=== PATIENT | female | born 1950 | race Caucasian/White ===

== ENCOUNTER 2020-04-11 10:30 | Outpatient (CLI) | payer MEDICARE, OTHER, SELFPAY ==
--- NOTE | 2020-04-11 10:36 | MM_ITS ---
WS: [id number] BILATERAL SCREENING DIGITAL MAMMOGRAM WITH CAD HISTORY: SCREENING COMPARISON: 03/23/2019, 03/03/2018 and 02/11/2017 Bilateral CC and MLO views submitted. Computer aided detection analyzed. Breast composition: The breasts are heterogeneously dense, which may obscure small masses. No suspici ous masses, microcalcifications or architectural distortion. Rodlike benign calcifications. Asymmetry in the superior LEFT breast on the MLO projection is stable over multiple prior studies. MM/[place] [id number] IMPRESSION: BI-RADS: 2-Benign FOLLOW UP: 1 Year Follow-up
== END 2020-04-11 10:31 | disposition home or self-care (01) ==
LOC: RADSHAW 10:34
PROVIDERS: PCP Nurse Practitioner; Visit Provider Nurse Practitioner
DX: Z12.31 Encounter for screening mammogram for malignant neoplasm of breast (principal)
CPT/HCPCS: 77067

== ENCOUNTER 2020-08-17 09:24 | Outpatient (CLI) | payer MEDICARE, OTHER, SELFPAY ==
[2020-08-17 09:44] VITALS: BMI 25.3
--- NOTE | 2020-08-17 09:50 | ECG_ITS ---
[facility] Test Date: 2020-08-17 Pat Name: Nereida Breen Department: Room: Gender: Female [employer] Supervisor: : 1950 Requested By: Elidia Ortega Order Number: [id number] Jatinder MD: Kaylie Pro M.D. Interpretive Statements NAME OF STUDY: LEXISCAN SESTAMIBI STRESS TEST INDICATION: Atypical Chest Pain PROCEDURE: At the baseline, the blood pressure was 151/101 mmHg, oxygen saturation 98% with a heart rate of 70 bpm. The electrocardiogram showed normal sinus rhythm, normal axis with nonspecific ST-T wave changes. Poor anterior R wave progression. The Lexiscan was infused over a period of 20 seconds. A total of 0.4 milligrams of Lexiscan was infused. The stress phase was continued for a total of 5 minutes. Heart rate at the end of the stress phase was 90 bpm, oxygen saturation 98% with a blood pressure of 152/89 mmHg. The EKG at the peak infusion revealed sinus rhythm with no significant ST-T wave changes. Sestamibi was injected 20 seconds after the Lexiscan infusion. Blood pressure at the end of the recovery phase was 165/97 mmHg, oxygen saturation 98% with a heart rate of 87 beats per minute. CONCLUSION: 1. No significant EKG changes with the LexiScan infusion. 2. No LexiScan induced chest pain or cardiac arrhythmia. 3. Baseline hypertension with normal blood pressure and heart rate response. 4. Sestamibi/sestamibi perfusion scan pending; see separate report. Electronically Signed On 08-21-2020 13:57:04 [employer]ILD [employer]IVE SERVICES SOCIAL WORKER by Kaylie Pro M.D. [id number]
--- NOTE | 2020-08-17 09:51 | NMCV_ITS ---
NM linda perf SPECT r/s* [id number] Nereida Breen Age: 69 Gender: F : 1950 Exam Date: 08/17/2020 11:10 Ordering Phys: Elidia Jones APN Technologist: WILLIAN Reyes Exam Location: [facility] Indications: CHEST PAIN STRESS TEST Please see separate stress test report in [facility] for full findings IMAGE PROTOCOL Rest/Stress 1 Lexiscan Day Radiopharmaceutical Dose (mCi) Administration Site Administered by Rest: Tc-99m 10.6 IV WILLIAN Reyes Sestamibi Stress:Tc-99m 32.5 IV WILLIAN Simons Sestamibi Rest: 17-Aug-2020 60 Discovery 630 Stress: 17-Aug-2020 30 Discovery 630 0.4mg Lexiscan. Supine position only as patient was unable to lay prone. SPECT RESULTS Technical Quality: Excellent Raw Data Analysis: Normal Image Corrections: No attenuation or motion correction applied Summed Stress Score: 0 Summed Rest Score: 0 Summed Difference Score: 0 PERFUSION FINDINGS SPECT images demonstrate homogeneous tracer distribution throughout the myocardium. FUNCTIONAL RESULTS (calculated via Gated SPECT) Stress Image LV EF (%): 67 Stress EDV (mL):92 TID: 0.93 Stress ESV (mL):30 FUNCTIONAL FINDINGS: The left ventricle is normal in size. Transient Ischemia Dilatation of 0.93. There is normal left ventricular systolic function. The left ventricular ejection fraction is normal with a value of 67%. There is normal left ventricular wall thickening and no regional wall motion abnormality. Normal end-diastolic and end-systolic volumes. IMPRESSIONS 1. Myocardial perfusion imaging is normal. Attenuation artifact noted in apical lateral wall. 2. Overall left ventricular systolic function is normal without regional wall motion abnormalities. 3. The left ventricular ejection fraction is normal with a value of 67%. 4. Scan indicates low risk for cardiac events. Kaylie Pro MD (Electronically Signed) Final Date: 21 August 2020 14:02 S
--- NOTE | 2020-08-17 11:31 | SUR.PREOP ---
Patient reports no pain or discomfort prior to the start of the procedure.
[2020-08-17] MEDS: regadenoson 0.4 Mg/5 ml Syringe IVP (11:38)
[2020-08-17 12:01] VITALS: BP 165/97; PULSE 87
== END 2020-08-17 09:25 | disposition home or self-care (01) ==
LOC: CDL 09:25
PROVIDERS: PCP Nurse Practitioner; Visit Provider Nurse Practitioner
DX: R07.89 Other chest pain (principal)
CPT/HCPCS: 78452; 93017; A9500; J2785

== ENCOUNTER 2020-11-29 10:59 | Outpatient (CLI) | payer MEDICARE, OTHER, SELFPAY ==
--- NOTE | 2020-11-29 11:07 | XR_ITS ---
WS: [id number] KNEE RIGHT TECHNIQUE: 2 views of the right knee CLINICAL INFORMATION: BILATERAL PRIMARY OSTEOARTHRITIS OF KNEE COMPARISON: None. FINDINGS: Normal anatomic alignment. Mild tricompartmental arthritis. Slightly hypertrophic patella. Small supr apatellar effusion. Mild soft tissue edema. No acute fractures. XR/XR knee RT 1-2V [id number] IMPRESSION: Mild tricompartmental arthritis. Small suprapatellar effusion. Kellgren-Simon Classification: grade 3 (moderate): moderate multiple osteoph ytes, definite narrowing of joint space and some sclerosis and possible deformi ty of bone ends
--- NOTE | 2020-11-29 11:07 | XR_ITS ---
WS: [id number] KNEE LEFT TECHNIQUE: 2 views of the left knee CLINICAL INFORMATION: BILATERAL PRIMARY OSTEOARTHRITIS OF KNEE COMPARISON: None. FINDINGS: Normal anatomic alignment. Mild tricompartmental arthritis. Slightly hypertrophic patella. Soft tissu e edema. Small suprapatellar effusion. No acute fractures.. XR/XR knee LT 1-2V [id number] IMPRESSION: Mild tricompartmental arthritis. Small suprapatellar effusion. Kellgren-Simon Classification: grade 3 (moderate): moderate multiple osteoph ytes, definite narrowing of joint space and some sclerosis and possible deformi ty of bone ends
== END 2020-11-29 11:00 | disposition home or self-care (01) ==
PROVIDERS: PCP Nurse Practitioner; Visit Provider Nurse Practitioner
DX: M17.0 Bilateral primary osteoarthritis of knee (principal); M25.462 Effusion, left knee; M25.461 Effusion, right knee
CPT/HCPCS: 73560

== ENCOUNTER 2021-04-12 11:42 | Outpatient (CLI) | payer MEDICARE, OTHER, SELFPAY ==
--- NOTE | 2021-04-12 11:46 | MM_ITS ---
WS: [id number] BILATERAL DIGITAL SCREENING MAMMOGRAPHY WITH CAD CLINICAL INFORMATION: SCREENING HISTORY: Screening mammogram. No current complaints. COMPARISON: April 11, 2020 TECHNIQUE: Bilateral CC and MLO views. FINDINGS: Scattered fibroglandular densities bilaterally. Punctate and secretory calcifications are stable. No suspicious focal mass, asymmetry, calcifications, or architectural distortion. No evidence of maligna ncy. MM/[place] [id number] IMPRESSION: BI-RADS: 2-Benign FOLLOW UP: 1 Year Follow-up Recommend return to annual screening mammography.
== END 2021-04-12 11:43 | disposition home or self-care (01) ==
LOC: RADSHAW 11:45
PROVIDERS: PCP Nurse Practitioner; Visit Provider Nurse Practitioner
DX: Z12.31 Encounter for screening mammogram for malignant neoplasm of breast (principal)
CPT/HCPCS: 77067

== ENCOUNTER 2021-09-17 10:14 | Outpatient (CLI) | payer MEDICARE, OTHER, SELFPAY ==
--- NOTE | 2021-09-17 10:38 | XR_ITS ---
WS: [id number] Exam: XR foot RT min 3V* [id number] Date/Time of Exam: 09/17/2021 10:38 AM Reason For Exam: OTHER ACQUIRED OF RIGHT FOOT No acute fracture or dislocation. Degenerative changes in the IP joints, first MP joint and midfoot j oints. No soft tissue foreign bodies. Plantar heel spur. Several hammertoe deformities noted. XR/XR foot RT min 3V* [id number] IMPRESSION: 1. Degenerative changes. No fracture or dislocation.
--- NOTE | 2021-09-17 10:49 | XR_ITS ---
WS: [id number] Exam: XR foot LT min 3V* [id number] Date/Time of Exam: 09/17/2021 10:49 AM Reason For Exam: PAIN IN LEFT FOOT No acute fracture or dislocation. Degenerative changes in the IP joints. Normal soft tissues. Posteri or calcaneal spur. No soft tissue foreign bodies. XR/XR foot LT min 3V* [id number] IMPRESSION: 1. Degenerative changes in the IP joints. 2. No fracture or dislocation.
== END 2021-09-17 10:15 | disposition home or self-care (01) ==
LOC: RAD 10:17
PROVIDERS: PCP Nurse Practitioner; Visit Provider Nurse Practitioner
DX: M21.6X1 Other acquired deformities of right foot (principal); M79.672 Pain in left foot
CPT/HCPCS: 73630

== ENCOUNTER → 2021-10-22 10:53 | Outpatient (BNVA) | payer MEDICARE, OTHER, SELFPAY | PROVIDERS: PCP Nurse Practitioner; Referring Provider Nurse Practitioner; Visit Provider Podiatrist Foot & Ankle Surgery | DX: M79.671 Pain in right foot (principal); M19.071 Primary osteoarthritis, right ankle and foot | CPT/HCPCS: 99203; 99204 ==

== ENCOUNTER 2022-04-23 15:26 | Outpatient (CLI) | payer MEDICARE, OTHER, SELFPAY ==
--- NOTE | 2022-04-23 15:35 | MM_ITS ---
WS: [id number] BILATERAL 3D TOMOSYNTHESIS DIGITAL SCREENING MAMMOGRAPHY WITH CAD CLINICAL INFORMATION: SCREENING HISTORY: Screening mammogram. No current complaints. COMPARISON: 2020 TECHNIQUE: Bilateral CC and MLO views. FINDINGS: Scattered fibroglandular densities bilaterally. No suspicious mass, asymmetry, calcifications, or arc hitectural distortion. No evidence of malignancy. Punctate and lucent centered calcifications. Secret ory calcifications. MM/[place] [id number] IMPRESSION: BI-RADS: 2-Benign FOLLOW UP: 1 Year Follow-up Recommend return to annual screening mammography.
== END 2022-04-23 15:27 | disposition home or self-care (01) ==
LOC: RAD 15:28
PROVIDERS: PCP Nurse Practitioner Family; Visit Provider Nurse Practitioner Family
DX: Z12.31 Encounter for screening mammogram for malignant neoplasm of breast (principal)
CPT/HCPCS: 77063; 77067

== ENCOUNTER → 2023-02-26 09:53 | Outpatient (BNVA) | payer MEDICARE, OTHER, SELFPAY | PROVIDERS: PCP Nurse Practitioner Family; Referring Provider Nurse Practitioner Family; Visit Provider Nurse Practitioner Family | DX: D48.5 Neoplasm of uncertain behavior of skin (principal); L81.4 Other melanin hyperpigmentation; D22.5 Melanocytic nevi of trunk; L57.8 Other skin changes due to chronic exposure to nonionizing radiation; L82.1 Other seborrheic keratosis; Z91.014 Allergy to mammalian meats; L85.3 Xerosis cutis | CPT/HCPCS: 11102; 99203 ==

== ENCOUNTER → 2023-03-13 08:13 | Outpatient (BNVA) | payer MEDICARE, OTHER, SELFPAY | PROVIDERS: PCP Nurse Practitioner Family; Visit Provider Dermatology | DX: D03.61 Melanoma in situ of right upper limb, including shoulder (principal) | CPT/HCPCS: 11603; 12032 ==

== ENCOUNTER 2023-05-07 08:42 | Outpatient (CLI) | payer MEDICARE, OTHER, SELFPAY ==
--- NOTE | 2023-05-07 08:44 | MM_ITS ---
WS: [id number] BILATERAL SCREENING DIGITAL TOMOSYNTHESIS MAMMOGRAM WITH CAD HISTORY: SCREENING COMPARISON: 04/23/2022 and 04/12/2021 Bilateral CC and MLO views with tomosynthesis and synthetic mammography submitted. Computer aided det ection analyzed. Breast composition: There are scattered areas of fibroglandular density. No suspicious masses, microc alcifications or architectural distortion. Numerous benign calcifications within each breast. IMPRESSION: MM/[place] [id number] BI-RADS: 2-Benign FOLLOW UP: 1 Year Follow-up
== END 2023-05-07 08:43 | disposition home or self-care (01) ==
LOC: RAD 08:42
PROVIDERS: PCP Nurse Practitioner Family; Visit Provider Nurse Practitioner Family
DX: Z12.31 Encounter for screening mammogram for malignant neoplasm of breast (principal)
CPT/HCPCS: 77063; 77067

== ENCOUNTER → 2023-07-22 14:43 | Outpatient (BNVA) | payer MEDICARE, OTHER, SELFPAY | PROVIDERS: PCP Nurse Practitioner Family; Visit Provider Dermatology | DX: L82.0 Inflamed seborrheic keratosis (principal); L71.8 Other rosacea; L82.1 Other seborrheic keratosis; L81.4 Other melanin hyperpigmentation; Z86.006 Personal history of melanoma in-situ | CPT/HCPCS: 17110; 99214 ==

== ENCOUNTER → 2024-03-12 08:15 | Outpatient (BNVA) | payer MEDICARE, OTHER, SELFPAY | PROVIDERS: PCP Nurse Practitioner Family; Visit Provider Nurse Practitioner Family | DX: L71.8 Other rosacea (principal); L82.1 Other seborrheic keratosis; L81.4 Other melanin hyperpigmentation; L57.8 Other skin changes due to chronic exposure to nonionizing radiation; D22.5 Melanocytic nevi of trunk; L82.0 Inflamed seborrheic keratosis; Z86.006 Personal history of melanoma in-situ | CPT/HCPCS: 17110; 99214 ==

== ENCOUNTER 2024-05-17 13:51 | Outpatient (CLI) | payer MEDICARE, OTHER, SELFPAY ==
--- NOTE | 2024-05-17 13:53 | MM_ITS ---
WS: [id number] Bilateral screening 3D tomosynthesis digital mammogram, 05/17/2024 1:53 PM Clinical Data: SCREENING Comparison: 05/07/2023, 04/23/2022, 04/12/2021, 04/19/2020, 03/23/2019, 03/03/2018, 02/24/2018, 02/11/2017, 01/08/2016, 12/05/2014, 05/26/2014, 03/10/2013, 04/07/2006. Findings: No spiculated masses or clustered calcifications are seen. There are no secondary signs of carcinoma . Numerous ductal calcifications are present in both breasts. MM/MM scr BI tomosynthesis [id number] Impression: Negative bilateral mammogram unchanged. Recommend annual screening mammograms. BIRADS: 1 - Negative. FOLLOW UP: 1 Year Follow-up DENSITY: There are scattered areas of fibroglandular density. The CAD electric organ checker was used
== END 2024-05-17 13:52 | disposition home or self-care (01) ==
LOC: RAD 13:52
PROVIDERS: PCP Nurse Practitioner Family; Visit Provider Nurse Practitioner Family
DX: Z12.31 Encounter for screening mammogram for malignant neoplasm of breast (principal); R92.1 Mammographic calcification found on diagnostic imaging of breast
CPT/HCPCS: 77063; 77067

== ENCOUNTER → 2024-09-09 09:11 | Outpatient (BNVA) | payer MEDICARE, OTHER, SELFPAY | PROVIDERS: PCP Nurse Practitioner Family; Visit Provider Nurse Practitioner Family | DX: L71.8 Other rosacea (principal); D22.5 Melanocytic nevi of trunk; L81.4 Other melanin hyperpigmentation; L57.8 Other skin changes due to chronic exposure to nonionizing radiation; Z08 Encounter for follow-up examination after completed treatment for malignant neoplasm; Z86.006 Personal history of melanoma in-situ; L57.0 Actinic keratosis | CPT/HCPCS: 17000; 99214 ==

== ENCOUNTER → 2024-12-03 09:28 | Outpatient (BNVA) | payer MEDICARE, OTHER, SELFPAY | PROVIDERS: PCP Nurse Practitioner Family; Visit Provider Student in an Organized Health Care Education/Training Program | DX: K57.92 Diverticulitis of intestine, part unspecified, without perforation or abscess without bleeding (principal) | CPT/HCPCS: 99204 ==

== ENCOUNTER 2024-12-28 07:34 | Day surgery (SDC) | payer MEDICARE, OTHER, SELFPAY ==
[2024-12-28 08:06] VITALS: BP 178/82; PULSE 57; RESP 16; TEMP 36.7; O2SAT 97; BMI 22.8
--- NOTE | 2024-12-28 09:02 | ANES.PREANE2 ---
Pre-Anesthetic Assessment Height/Weight: Height 1.65 m Weight 62.142 kg Temp Pulse Resp BP Pulse Ox O2 Del Method 98.1 F 57 L 16 178/82 97 Room Air 12/28/24 08:06 12/28/24 08:06 12/28/24 08:06 12/28/24 08:06 12/28/24 08:06 12/28/24 08:06 Preop Diagnosis: Diverticulitis Operation Date: 12/28/24 09:00 Proposed Procedures p Colonoscopy 61476, G0105, K57.92(Not Applicable) - Jerry Flanagan MD Was Beta Valdemar taken within 24 hours: Yes Was Clonidine taken within 24 hours: N/A Last intake: Intake Last Liquid Date 12/27/24 Last Liquid Time 20:00 Last Solid Date 12/26/24 Last Solid Time 18:00 Social No alcohol and No tobacco Exam alert, oriented x 3, clear to auscultation bilaterally and regular rate & rhythm Airway Submandibular: within normal limits Cervical ROM: within normal limits Mallampati: Class II Dentition: full History/ROS No significant history except as noted and No significant complaints Pulmonary None reported CV/HEM Hypertension None reported Hepatic None reported GI None reported Metabolic Thyroid Disease [facility]/sk None reported Neuropsych None reported Anesthetic Plan ASA status: 2 Anesthesia: Anesthesia Evaluation and MAC Risk of > 500 ml blood loss (7ml/kg in children): No Medications/Allergies Home Medications ?Medication ?Instructions ?Recorded ?Confirmed ?Last Taken ?Type alprazolam 0.5 mg tablet 0.5 mg PO DAILY 10/22/21 12/28/24 12/22/24 04:00 History fluticasone propionate 50 50 mcg intranasal DAILY 10/22/21 12/28/24 12/22/24 04:00 History mcg/actuation nasal spray,suspension levothyroxine 75 mcg tablet 100 mcg PO DAILY 10/22/21 12/28/24 12/28/24 History metoprolol succinate 50 mg 50 tab PO DAILY 10/22/21 12/28/24 12/28/24 History tablet,extended release 24 hr ondansetron 8 mg disintegrating 8 mg PO Q8H PRN nausea and 12/21/24 12/28/24 Unknown Rx tablet vomiting #3 tabs Allergies Allergy/AdvReac Type Severity Reaction Status Date / Time Alpha-Gal Allergy ADR-Itching Verified 12/28/24 08:04 (Rdydubrtu-Ufpqe-3,3-Gala Iodine and Iodide Containing Allergy Unknown Verified 12/28/24 08:04 Produc Penicillins Allergy Unknown Verified 12/28/24 08:04 Sulfa (Sulfonamide Allergy Unknown Verified 12/28/24 08:04 Antibiotics) Current Medications Generic Name Dose Route Start Last Admin Trade Name Freq PRN Reason Stop Dose Admin Sodium Chloride 1,000 mls @ 15 mls/hr 12/28/24 07:52 12/28/24 08:14 Sodium Chloride 0.9% IV 12/29/24 07:51 15 mls/hr .Q24H PRN Administration COLONOSCOPY FLUIDS PFSH Anesthesia Family History Other CAD (coronary artery disease) Social History Smoking and tobacco/nicotine status: never used tobacco/nicotine Data Anesthesia Cardiac Studies: Sestamibi Stress Test (Cardiology) 08/17/20 Holter Monitor 08/04/20
--- NOTE | 2024-12-28 09:22 | W.PM.OPSUD ---
Surgery/Procedure H&P Update DATE OF PROCEDURE: December 28, 2024 DATE H&P PERFORMED: 12/03/24 H&P UPDATE INFORMATION: I have reviewed H&P completed within last 30 days, I have examined patient prior to procedure and No changes to prior documentation PREOP DIAGNOSIS: Diverticulitis PLANNED PROCEDURE: Operation Date: 12/28/24 09:00 Proposed Procedures p Colonoscopy 35339, G0105, K57.92(Not Applicable) - Jerry Flanagan MD
--- NOTE | 2024-12-28 09:52 | PC.NURSE ---
Cecum time 0990
[2024-12-28 09:59] VITALS: BP 139/67; PULSE 53; RESP 20; TEMP 36.3; O2SAT 98
[2024-12-28 10:18] VITALS: BP 154/76; PULSE 56; RESP 18; O2SAT 99
--- NOTE | 2024-12-28 10:40 | ANE.PACU2 ---
Inpatient post-anesthesia follow up: Airway intact: Yes Vital signs: Temperature 97.4 F Pulse Rate 56 Respiratory Rate 18 Blood Pressure 154/76 Pulse Oximetry 99 Oxygen Delivery Me thod Room Air Oxygen Flow Rate Fraction of Inspir ed Oxygen Hydration adequate: Yes Nausea and vomiting: No Pain level: 1 Mental status: Baseline
== END 2024-12-28 10:40 | disposition home or self-care (01) ==
PROVIDERS: PCP Nurse Practitioner Family; Visit Provider Student in an Organized Health Care Education/Training Program
PROC: 0DJD8ZZ Inspection of Lower Intestinal Tract, Via Natural or Artificial Opening Endoscopic (ICD-10-PCS; CPT 45378; principal; 2024-12-28 09:00)
DX: Z09 Encounter for follow-up examination after completed treatment for conditions other than malignant neoplasm (principal); K57.30 Diverticulosis of large intestine without perforation or abscess without bleeding; Z87.19 Personal history of other diseases of the digestive system; R19.4 Change in bowel habit; E07.9 Disorder of thyroid, unspecified; Z79.899 Other long term (current) drug therapy; Z79.890 Hormone replacement therapy; Z88.0 Allergy status to penicillin; Z88.2 Allergy status to sulfonamides; Z91.041 Radiographic dye allergy status; Z88.8 Allergy status to other drugs, medicaments and biological substances
CPT/HCPCS: 45378; J2704; J7030

== ENCOUNTER → 2025-03-08 12:52 | Outpatient (BNVA) | payer MEDICARE, OTHER, SELFPAY | PROVIDERS: PCP Nurse Practitioner Family; Visit Provider Nurse Practitioner Family | DX: L57.8 Other skin changes due to chronic exposure to nonionizing radiation (principal); Z08 Encounter for follow-up examination after completed treatment for malignant neoplasm; Z86.006 Personal history of melanoma in-situ; Z71.89 Other specified counseling; L82.0 Inflamed seborrheic keratosis; Z78.0 Asymptomatic menopausal state; Z78.9 Other specified health status; L53.8 Other specified erythematous conditions; L57.0 Actinic keratosis | CPT/HCPCS: 17000; 17110; 99214 ==

== ENCOUNTER 2025-03-18 09:06 | Outpatient (CLI) | payer MEDICARE, OTHER, SELFPAY ==
--- NOTE | 2025-03-18 09:15 | XR_ITS ---
WS: [id number] Exam: XR hip RT 2-3V wo/w pel* [id number] Date/Time of Exam: 03/18/2025 9:21 AM Reason For Exam: RT hip pain Advanced degenerative change of the RIGHT hip with near auih-wi-szvi articulation. No fracture. Subcortical cyst formation in the femoral head. Normal soft tissues. The pelvis is intact. Moderate DJD of the LEFT hip also noted. XR/XR hip RT 2-3V wo/w pel* [id number] IMPRESSION: 1. Advanced degenerative change of the right hip. No fracture.
== END 2025-03-18 09:07 | disposition home or self-care (01) ==
LOC: RAD 09:09
PROVIDERS: PCP Nurse Practitioner Family; Visit Provider Nurse Practitioner Family
DX: M25.551 Pain in right hip (principal); M16.0 Bilateral primary osteoarthritis of hip
CPT/HCPCS: 73502

== ENCOUNTER → 2025-04-26 08:02 | Outpatient (BNVA) | payer MEDICARE, OTHER, SELFPAY | PROVIDERS: PCP Nurse Practitioner Family; Visit Provider Physician Assistant | DX: M16.11 Unilateral primary osteoarthritis, right hip (principal) | CPT/HCPCS: 73502; 99204 ==

== ENCOUNTER 2025-05-25 07:46 | Outpatient (CLI) | payer MEDICARE, OTHER, SELFPAY ==
--- NOTE | 2025-05-25 07:51 | MM_ITS ---
WS: [id number] SCREENING DIGITAL BREAST TOMOSYNTHESIS MAMMOGRAM WITH CAD HISTORY: SCREENING COMPARISON: 05/17/2024, 05/07/2023, 04/12/2021 and 04/11/2020 Bilateral CC and MLO with tomosynthesis and synthetic mammography submitted. Computer aided detection analyzed. Breast composition: The breasts are heterogeneously dense, which may obscure small masses. Subtle area of architectural distortion in the central posterior LEFT breast seen best on the CC projection. There are additional benign coarse and rodlike calcifications in each breast. No mass. MM/MM scr tomosynthesis [id number] IMPRESSION: BI-RADS: 0 - Incomplete: Need additional imaging evaluation FOLLOW UP: Need Additional Imaging LEFT breast: Spot compression views (CC and MLO). True ML. Ultrasound to follow if abnormality persists.
== END 2025-05-25 07:47 | disposition home or self-care (01) ==
LOC: RAD 07:47
PROVIDERS: PCP Nurse Practitioner Family; Visit Provider Nurse Practitioner Family
DX: Z12.31 Encounter for screening mammogram for malignant neoplasm of breast (principal); R92.333 Mammographic heterogeneous density, bilateral breasts; R92.1 Mammographic calcification found on diagnostic imaging of breast
CPT/HCPCS: 77063; 77067

== ENCOUNTER 2025-06-06 13:37 | Outpatient (CLI) | payer MEDICARE, OTHER, SELFPAY ==
--- NOTE | 2025-06-06 14:00 | CT_ITS ---
WS: [id number] CT RIGHT hip for MAKSIM procedure HISTORY: M16.11 - Unilateral primary osteoarthritis, right hip Date: 06/06/2025 1:40 PM TECHNIQUE: Protocol for MAKSIM total hip replacement has been obtained. This includes axial imaging from the hip joint through the knee joint. DLP: 876 FINDINGS: Osteopenia. Moderate facet arthropathy lower lumbar spine. Advanced degenerative arthritis RIGHT hip with subchondral cystic change and sclerosis. Kgre-rs-apnf articulation. Sigmoid diverticulosis. CT/CT hip RT [facility] [id number] IMPRESSION: CT imaging provided for [facility] robotic total hip replacement.
== END 2025-06-06 13:38 | disposition home or self-care (01) ==
LOC: RAD 13:38
PROVIDERS: PCP Nurse Practitioner Family; Visit Provider Student in an Organized Health Care Education/Training Program
DX: M16.11 Unilateral primary osteoarthritis, right hip (principal); M85.80 Other specified disorders of bone density and structure, unspecified site; M47.816 Spondylosis without myelopathy or radiculopathy, lumbar region; K57.30 Diverticulosis of large intestine without perforation or abscess without bleeding
CPT/HCPCS: 73700

== ENCOUNTER → 2025-06-07 11:45 | Outpatient (BNVA) | payer MEDICARE, OTHER, SELFPAY | PROVIDERS: PCP Nurse Practitioner Family; Visit Provider Student in an Organized Health Care Education/Training Program | DX: Z01.818 Encounter for other preprocedural examination (principal) | CPT/HCPCS: 80053; 81001; 85025 ==

== ENCOUNTER 2025-06-13 07:44 | Outpatient (CLI) | payer MEDICARE, OTHER, SELFPAY ==
--- NOTE | 2025-06-13 07:49 | MM_ITS ---
WS: [id number] ADDITIONAL VIEWS LEFT MAMMOGRAM WITH DIGITAL BREAST TOMOSYNTHESIS. LEFT breast ultrasound, limited HISTORY: ABNORMAL MAMMOGRAM COMPARISON: 05/25/2025, 05/17/2024, 05/07/2023 Spot compression views LEFT breast in CC, MLO projections and true ML submitted with digital breast tomosynthesis and SM. Breast composition: The breasts are heterogeneously dense, which may obscure small masses. Architectural distortion central breast completely resolves. There is dense fibroglandular tissue. Numerous benign calcifications. Ultrasound to follow. LEFT breast ultrasound, limited. No mass or distortion noted in the LEFT breast from 12-2 o'clock. Very dense fibroglandular tissue. MM/MM diag LT tomosynthesis [id number] IMPRESSION: BI-RADS: 2 - Benign FOLLOW UP: 1 Year Follow-up No persistent abnormality in the LEFT breast. Return to annual screening mammog [place].
== END 2025-06-13 07:45 | disposition home or self-care (01) ==
LOC: RAD 07:45
PROVIDERS: Absent Provider Student in an Organized Health Care Education/Training Program; PCP Nurse Practitioner Family; Visit Provider Nurse Practitioner Family
DX: R92.8 Other abnormal and inconclusive findings on diagnostic imaging of breast (principal); R92.323 Mammographic fibroglandular density, bilateral breasts; R92.1 Mammographic calcification found on diagnostic imaging of breast; R92.333 Mammographic heterogeneous density, bilateral breasts
CPT/HCPCS: 76642; 77061; 77063